=== PATIENT | female | born 1990 | race Hispanic/Latino ===

== ENCOUNTER 2016-11-24 10:47 | Emergency (ER) | payer SELFPAY ==
[~2016-11-24] VITALS: Ht 152.4 cm; Wt 52.0 kg
[~2016-11-24 10:47] MED LIST: MONISTAT1 VA; NO; PRE-NATAL; PRE-NATAL PO; PRENATAL PO; PROCARDIA10 MG PO; TUMS500 MG PO; ZOFRAN ODT8 MG SL
[2016-11-24 12:35] LABS: URINE BILIRUBIN - DIPSTICK NEGATIVE (NEGATIVE); URINE BLOOD DIPSTICK NEGATIVE (NEGATIVE); URINE CLARITY CLEAR; URINE COLOR YELLOW; URINE GLUCOSE - DIPSTICK NEGATIVE (NEGATIVE); URINE KETONE NEGATIVE (NEGATIVE); URINE LEUK ESTERASE NEGATIVE (NEGATIVE); URINE NITRITE - DIPSTICK NEGATIVE (Negative); URINE PROTEIN - DIPSTICK NEGATIVE (NEG-TRACE); URINE SPECIFIC GRAVITY 1.025; URINE UROBILINOGEN - DIPSTICK 0.2 E.U./dL (0.2)
[2016-11-24 12:47] LABS: INFLUENZA A NONE DETECTED (NONE DETECT); INFLUENZA B NONE DETECTED (NONE DETECT)
[2016-11-24 13:40] VITALS: BP 129/74
== END 2016-11-24 13:40 | disposition home or self-care (01) | DRG 556 ==
LOC: ED 10:47
PROVIDERS: Emergency Medicine
DX: M79.1 Myalgia (principal)